=== PATIENT | male | born 2000 | race Two or more races ===

== ENCOUNTER 2023-04-24 16:41 | Emergency (ER) | payer MEDICAID ==
[~2023-04-24] VITALS: Ht 183.5 cm; Wt 70.0 kg
[2023-04-24 16:49] VITALS: TEMP 98.3
[2023-04-24] MEDS ORDERED: IBUPROFEN 600 MG TABLET PO ONE (20:30)
[2023-04-24 20:57] VITALS: BP 117/67; PULSE 72; RESP 16
== END 2023-04-24 20:58 | disposition home or self-care (01) ==
LOC: EMS 16:43
DX: M79.672 Pain in left foot (principal); F12.90 Cannabis use, unspecified, uncomplicated
CPT/HCPCS: 99284; 73590-TC; 73620-TC; Z7502; Z7610